=== PATIENT | female | born 1995 | race Caucasian/White ===

== ENCOUNTER 2023-05-30 04:15 | Emergency (ER) | payer OTHER, SELFPAY ==
--- NOTE | ~2023-05-30 | US_ITS ---
EXAMINATION: US venous doppler [facility] DATE: 05/30/2023 07:53 INDICATION: Bilateral lower limb swelling TECHNIQUE: Hernandez scale images without and with compression and Doppler images of the bilateral lower e xtremity veins were obtained. COMPARISON: None FINDINGS: The right common femoral vein, profunda femoral vein, femoral vein, popliteal vein, peroneal trunk, p osterior tibial veins, and greater saphenous vein are patent. The left common femoral vein, profunda femoral vein, femoral vein, popliteal vein, peroneal trunk, po sterior tibial veins, and greater saphenous vein are patent. IMPRESSION: 1. Patent bilateral lower extremity veins. No evidence of deep venous thrombosis. Reviewed, dictated and finalized at location L. IMPRESSION: 1. Patent bilateral lower extremity veins. No evidence of deep venous thrombosi s.
[2023-05-30 04:19] VITALS: BP 130/77; PULSE 107; RESP 16; TEMP 36.9; O2SAT 100
[2023-05-30 05:02] VITALS: BP 120/72; PULSE 86; RESP 15; O2SAT 100
[2023-05-30 05:09] LABS: Basophils Percent Auto 0.5 % (0.2-1.2); Eosinophils Absolute Auto 0.3 K/mm3 (0-0.3); Eosinophils Percent Auto 4.2 % (0-4.4); Hematocrit 34.5 % (37.0-47.0); Hemoglobin 11.3 g/dL (12.0-15.0); Immature Granulocyte Absolute 0.02 K/mm3 (0.00-0.031); Immature Granulocyte Percent A 0.3 % (0-0.5); Lymphocytes Absolute Auto 1.63 K/mm3 (0.9-3.2); Lymphocytes Percent Auto 26.5 % (18.3-44.2); Mean Corpuscular HGB Conc 32.8 g/dl (32-36); Mean Corpuscular Hemoglobin 30.5 pg (26-34); Mean Platelet Volume 9.6 fl (7.4-10.4); Monocytes Absolute Auto 0.4 K/mm3 (0.1-0.6); Monocytes Percent Auto 6.5 % (2.6-8.5); Neutrophils Absolute Auto 3.8 K/mm3 (1.3-6.7); Platelet Count Result 287 k/mm3 (150-375); Red Blood Count 3.71 M/mm3 (4.2-5.4); Red Cell Distribution Width 13.5 % (11.5-14.5); White Blood Count 6.2 K/mm3 (4.5-10.0)
[2023-05-30 05:13] LABS: Appearance Urine Cloudy (Clear); Bacteria Urine 4+ /hpf; Bilirubin Urine Negative (Negative); Blood Urine Negative (Negative); Color Urine Yellow (Yellow); Glucose Urine UA Negative (Negative); Ketones Urine Negative (Negative); Leukocyte Esterase Ur Trace LEU/UL (Negative); Nitrate Urine Negative (Negative); Non Pathogenic Casts 0-2; Protein Urine Trace mg/dL (Negative); RBC Urine 0-2 /hpf (0-2); Squamous Epithelial Cell Urine None seen /hpf (Few); pH Urine 6.5 (5.0-9.0)
[2023-05-30 05:18] LABS: Add Urine Microscopic? YES; Alanine Aminotransferase 38 U/L (6-35); Albumin Level 4.1 g/dL (3.5-5.1); Alkaline Phosphatase 83 U/L (38-126); Anion Gap 2 mmol/L (8-16); Aspartate Amino Transferase 37 U/L (14-36); Bilirubin,Total 0.4 mg/dL (0.2-1.3); Blood Urea Nitrogen 14 mg/dL (7-17); Calcium 9.2 mg/dL (8.4-10.2); Carbon Dioxide 32 mmol/L (22-30); Chloride 101 mmol/L (98-107); Estimated CRCL calculation 87 ml/min; Estimated Glomerular Filt Rate > 60; Glucose 76 mg/dL (65-110); Potassium 4.1 mmol/L (3.4-5.0); Sodium 135 mmol/L (137-145)
[2023-05-30 05:20] LABS: INR 0.9
[2023-05-30 05:21] LABS: Partial Thromboplastin Time 35.1 SECONDS (22.3-36.8)
[2023-05-30 05:25] LABS: D Dimer 0.68 ug/mL (<0.48)
[2023-05-30 05:26] LABS: NT Pro B Type Natriuretic Pept 38 pg/mL (19.9-100)
--- NOTE | 2023-05-30 05:28 | ED.GENADULT ---
HPI - General Adult General Chief complaint: Extremity Problem,Nontraumatic <Carson Flores MD - Last Filed: 05/30/23 05:30> Stated complaint: feet swelling <Carson Flores MD - Last Filed: 05/30/23 05:30> Time Seen by Provider: 05/30/23 04:32 <Carson Flores MD - Last Filed: 05/30/23 05:30> History of Present Illness HPI narrative: Patient 27-year-old female who presents to Emergency Department with a chief complaint of lower extremity swelling. Patient reports that for several weeks she has been having pain and swelling in her legs and reports it is gotten worse the patient does report that she has prior history of diabetes but has not been taking medications for several years patient also reports that she had been taking a water pill in the past but has not been taking that. Patient denies chest pain denies shortness of breath does report that she has had a car ride of greater than 2 hours in the recent history. <Carson Flores MD - Last Filed: 05/30/23 05:30> Related Data Allergies/adverse reactions: Allergies Allergy/AdvReac Type Severity Reaction Status Date / Time No Known Allergies Allergy Unverified 03/23/18 13:19 <Carson Flores MD - Last Filed: 05/30/23 05:30> Review of Systems Review of Systems: A 10 system review of systems was completed on the patient and is negative except for what is stated in the HPI. Nursing and ancillary documentation was reviewed. <Carson Flores MD - Last Filed: 05/30/23 05:30> Exam Narrative: GENERAL: Well-appearing, well-nourished, and in no acute distress. HEAD: Normocephalic, atraumatic. EYES: PERRLA and EOMI. ENT: Nares clear, no rhinorrhea or epistaxis. Mucous membranes moist. NECK: Supple. CHEST: Clear to auscultation. No respiratory distress. HEART: Regular rate and rhythm. No murmur heard. Normal peripheral pulses. ABDOMEN: Soft, nontender, nondistended, normal active bowel sounds. EXTREMITIES: Normal range of motion. +1 edema. SKIN: Warm, dry, no rash. NEURO: No focal deficits. Alert and oriented x3. PSYCH: Normal mood and affect. <Carson Flores MD - Last Filed: 05/30/23 05:30> Course Course Emergency Course: 07:00 - Patient was signed out to me by overnight ED physician, Dr. Flores pending ultrasound of the lower extremities. 08:45 - Ultrasound negative for DVT. The patient's exam is consistent with lower extremity edema. She recently recovered insurance coverage and has a primary care doctor. She has taken diuretics before. Will discharge with Lasix and recommendation to follow-up with her primary care doctor. Discussed return and emergency precautions including signs/symptoms of cellulitis, ACS and respiratory distress. The patient voiced understanding and is comfortable with the plan. All questions answered to her satisfaction. <Fady Austin MD - Last Filed: 05/30/23 08:53> Vital Signs Vital signs: Vital Signs Temperature 98.4 F 05/30/23 04:19 Pulse Rate 107 H 05/30/23 04:19 Respiratory Rate 16 05/30/23 04:19 Blood Pressure 130/77 05/30/23 04:19 Pulse Oximetry 100 05/30/23 04:19 Oxygen Delivery Room Air 05/30/23 04:19 Temperature 98.4 F 05/30/23 04:19 Pulse Rate 94 05/30/23 06:20 Respiratory Rate 14 05/30/23 06:20 Blood Pressure 106/56 L 05/30/23 06:20 Pulse Oximetry 100 05/30/23 06:20 Oxygen Delivery Room Air 05/30/23 04:19 <Carson Flores MD - Last Filed: 05/30/23 05:30> Vital Signs Temperature 98.4 F 05/30/23 04:19 Pulse Rate 107 H 05/30/23 04:19 Respiratory Rate 16 05/30/23 04:19 Blood Pressure 130/77 05/30/23 04:19 Pulse Oximetry 100 05/30/23 04:19 Oxygen Delivery Room Air 05/30/23 04:19 Temperature 98.4 F 05/30/23 04:19 Pulse Rate 94 05/30/23 06:20 Respiratory Rate 14 05/30/23 06:20 Blood Pressure 106/56 L 05/30/23 06
[2023-05-30 06:20] VITALS: BP 106/56; PULSE 94; RESP 14; O2SAT 100
--- NOTE | 2023-05-30 07:19 | PC.NURSE ---
Pt taken to u/s via stretcher at this time.
[2023-05-30 08:38] VITALS: BP 139/83; PULSE 89; RESP 12; O2SAT 100
== END 2023-05-30 09:07 | disposition home or self-care (01) ==
PROVIDERS: Emergency Medicine; Emergency Provider Preventive Medicine Aerospace Medicine; PCP Family Medicine
DX: R60.0 Localized edema (principal); F15.10 Other stimulant abuse, uncomplicated
CPT/HCPCS: 36415; 80053; 81001; 83735; 83880; 85025; 85380; 85610; 85730; 87077; 87086; 87186; 93970; 99284